=== PATIENT | female | born 1990 | race African-American/Black ===

== ENCOUNTER → 2020-03-19 | Emergency (ER) | payer OTHER ==
[~2020-03-19] MED LIST: CEPHALEXIN 500 MG CAP ONE; OXYCODONE/APAP 5MG/325MG(BULK FOR ED) 1 TABLET ONE
== END | disposition home or self-care (01) ==
LOC: M ED 23:41
DX: L73.2 Hidradenitis suppurativa (principal)

== ENCOUNTER 2021-08-14 13:12 | Emergency (ER) | payer OTHER ==
[~2021-08-14] VITALS: Ht 162.6 cm; Wt 77.7 kg
[2021-08-14] MEDS ORDERED: NS 1,000 ML IV ONE (16:20)
[2021-08-14 17:09] LABS: BASO # 0.1 10^3/uL (0.0-0.2); BASO % 0.7 % (0.0-1.0); EOS # 0.1 10^3/uL (0.0-0.5); EOS % 0.6 % (0.0-3.0); HEMATOCRIT 41.1 % (36.0-47.0); HEMOGLOBIN 13.2 g/dl (12.0-15.5); LYMPH # 2.9 10^3/uL (1.5-5.0); LYMPH % 29.5 % (24.0-44.0); MEAN CORPUSCULAR HEMOGLOBIN 31.1 pg (27.0-33.0); MEAN CORPUSCULAR HGB CONC 32.1 g/dl (32.0-36.5); MEAN CORPUSCULAR VOLUME 96.7 fl (80.0-96.0); MONO # 0.6 10^3/uL (0.0-0.8); MONO % 5.7 % (2.0-8.0); NEUTROPHILS # 6.2 10^3/uL (1.5-8.5); NEUTROPHILS % 63.3 % (36.0-66.0); PLATELET COUNT, AUTOMATED 278 10^3/uL (150-450); RED BLOOD COUNT 4.25 10^6/uL (4.00-5.40); WHITE BLOOD COUNT 9.9 10^3/uL (4.0-10.0)
--- NOTE | 2021-08-14 17:23 | REP ---
INDICATION: swelling and redness to chin and neck. COMPARISON: None. TECHNIQUE: Real-time sonographic evaluation over the region of interest with Doppler FINDINGS: In the submental region there are 2 hypoechoic mixed echo nodules which are [id number] each measuring approximately a cm. They have peripheral decreased echoes and evidence of central increased echoes. IMPRESSION: Two solid nodules in the submental region likely representing submental lymph nodes. Follow-up is recommended. Exact etiology uncertain. <Electronically signed by Kevin Tran > 08/14/21 [id number]
[2021-08-14] MEDS ORDERED: KETOROLAC 30 MG/ML 1ML VIAL IV ONE (17:30)
[2021-08-14 17:45] LABS: RSV AMPLIFICATION NEGATIVE (NEGATIVE)
--- NOTE | 2021-08-14 18:44 | REP ---
INDICATION: swelling to chin and neck. COMPARISON: None TECHNIQUE: AP and lateral soft tissue neck radiographs. FINDINGS: The osseous structures are intact and normal. The airway is normal. Lateral view suggests element of submandibular swelling without subcutaneous emphysema or foreign body and is nonspecific. IMPRESSION: Lateral view best demonstrates sub mandibular soft tissue swelling of uncertain etiology or significance. <Electronically signed by Yasir Heller > 08/14/21 [id number]
[2021-08-14] MEDS ORDERED: CEPH500C PO (19:13)
[2021-08-14] MEDS ORDERED: CEPHALEXIN 500 MG CAP PO ONE (19:15)
[2021-08-14 19:27] VITALS: BP 139/96
== END 2021-08-14 19:42 | disposition home or self-care (01) ==
LOC: M ED 13:12
DX: L03.221 Cellulitis of neck (principal); J45.909 Unspecified asthma, uncomplicated; F17.200 Nicotine dependence, unspecified, uncomplicated
CPT/HCPCS: 70360; 76536; 80047; 83605; 84702; 85025; 87040; 87631; 96361; 96374; 99283; J1885